=== PATIENT | female | born 1975 | race Caucasian/White ===

== ENCOUNTER 2021-02-19 04:45 | Emergency (ER) | payer SELFPAY ==
[2021-02-19] MEDS ORDERED: Dexamethasone 10 MG/ML VIAL ONE (05:04)
[2021-02-19] MEDS ORDERED: Ondansetron ODT 4 MG TAB ONE (05:09)
[2021-02-19] MEDS ORDERED: Cyclobenzaprine 10 MG TAB ONE (06:11)
== END 2021-02-19 06:14 | disposition home or self-care (01) ==
LOC: MADERS 04:45
DX: M79.12 Myalgia of auxiliary muscles, head and neck (principal); M06.9 Rheumatoid arthritis, unspecified; Z79.899 Other long term (current) drug therapy; Z79.01 Long term (current) use of anticoagulants
CPT/HCPCS: 96372; 99283; J1100; Q0162